=== PATIENT | male | born 1945 | race Hispanic/Latino ===

== ENCOUNTER 2017-10-18 11:43 | Inpatient (IN) | payer MEDICARE ==
[2017-10-18] MEDS ORDERED: HYDROmorphone 1 mg/ml ISec IVP STA (11:59)
[2017-10-18] MEDS ORDERED: DiphenhydrAMINE 50 mg/ml Inj IVP STA (11:59)
--- NOTE | 2017-10-18 12:00 | ED PDOC ---
Arrival/HPI - General Chief Complaint: Back Pain Time Seen by Provider: 10/18/17 11:45 Historian: Patient - History of Present Illness Narrative History of Present Illness (Text): 10/18/17 11:55 72 year old male, whose PMH includes diabetes and hypertension, who presents to the emergency department complaining of left sided flank and back pain since 3 days ago. Patient reports eating well on Thursday, but has also developed food intolerance and vomiting. Patient notes pain is worse when laying down or on the left side. Patient denies chest pain, shortness of breath, fever, chills, diarrhea, or other complaints. Time/Duration: < week Symptom Onset: Sudden Symptom Course: Worsening Context: Home Past Medical History - Provider Review Nursing Documentation Reviewed: Yes - Cardiac Hx Hypertension: Yes Hx Pacemaker: No - Neurological Hx Paralysis: No - Renal Other/Comment: Prostate - Endocrine/Metabolic Hx Diabetes Mellitus Type 2: Yes - Hematological/Oncological Hx Blood Transfusions: No Hx Blood Transfusion Reaction: No - Musculoskeletal/Rheumatological Hx Musculoskeletal Disorders: Yes (SPINAL STENOSIS) - Psychiatric Hx Substance Use: No - Surgical History Other/Comment: Laminectomy. Spinal Sx. Right hip replacement - Anesthesia Hx Anesthesia Reactions: Yes Hx Malignant Hyperthermia: No Family/Social History - Physician Review Nursing Documentation Reviewed: Yes Family/Social History: Unknown Family HX Smoking Status: Never Smoked Hx Alcohol Use: Yes (ON OCCASION) Frequency of alcohol use: Socially Hx Substance Use: No Allergies/Home Meds Allergies/Adverse Reactions: Allergies No Known Allergies Allergy (Verified 10/18/17 11:54) Home Medications: Home Meds Medication Instructions Recorded Confirmed Aspirin [Ecotrin] 325 mg PO QAM 12/12/15 10/18/17 Diltiazem HCl [Tiazac] 240 mg PO QAM 12/12/15 10/18/17 Fish Oil/Dha/Epa [Fish Oil 1,200 1 each PO QAM 12/12/15 10/18/17 mg Fish Oil] Insulin Pump/Infus. Set/Meter 1 each MC CONT 12/12/15 10/18/17 [Accu-Chek Combo System] Pregabalin [Lyrica] 75 mg PO BID 12/12/15 10/18/17 RX: Fenofibrate Nanocrystallized 145 mg PO QAM 12/12/15 10/18/17 [Fenofibrate] RX: Metoprolol Tartrate [Lopressor] 50 mg PO BID 12/12/15 10/18/17 RX: Ramipril [Altace] 10 mg PO QAM 12/12/15 10/18/17 Simvastatin [Zocor] 80 mg PO HS 12/12/15 10/18/17 Tramadol HCl [Ultram] 50 mg PO Q12H 12/12/15 10/18/17 Review of Systems - Review of Systems Constitutional: absent: Fevers ENT: absent: Sore Throat Respiratory: absent: SOB Cardiovascular: absent: Chest Pain Gastrointestinal: Nausea, Vomiting, Food Intolerance. absent: Diarrhea Genitourinary Male: absent: Dysuria Musculoskeletal: Back Pain (left sided back and flank pain ) Skin: absent: Rash Neurological: absent: Headache Endocrine: absent: Diaphoresis Physical Exam Vital Signs Reviewed: Yes Vital Signs Temp Pulse Resp BP Pulse Ox 10/18/17 16:31 62 18 129/76 98 10/18/17 11:50 98.2 F 96 H 18 126/83 99 Temperature: Afebrile Blood Pressure: Normal Pulse: Tachycardic Respiratory Rate: Normal Appearance: Positive for: Well-Appearing, Non-Toxic, Comfortable Pain Distress: None Mental Status: Positive for: Alert and Oriented X 3 - Systems Exam Head: Present: Atraumatic, Normocephalic Pupils: Present: PERRL Extroacular Muscles: Present: EOMI Conjunctiva: Present: Normal Mouth: Present: Moist Mucous Membranes Respiratory/Chest: Present: Clear to Auscultation, Good Air Exchange. No: Respiratory Distress, Accessory Muscle Use, Wheezes, Decreased Breath Sounds, Rales, Rhonchi Cardiovascular: Present: Regular Rate and Rhythm, Normal S1, S2. No: Murmurs Abdomen: Present: Distention, Normal Bowel Sounds. No: Tenderness, Peritoneal Signs, Rebound, Guarding Neurological: Present: GCS=15, CN II-XII Intact, Speech Normal Skin: Present: Warm, Dry, Normal Color. No: Rashes Psychiatric: Present: Alert, Oriented x 3, Normal Insight, Normal Concentration Medical Decision Making ED Course and Treatment: 10/18/17 Impression: 72 year old male with distended abdomen complaining of left sided flank and back pain associated with food intolerance. Plan: -- CT abdomen -- Labs -- Urinalysis -- Zofran, Reglan, Benadryl, Dialudid, Toradol, and Sodium Chloride -- Reassess and disposition Progress Notes: 10/18/17 13:18 CODE SEPSIS was called. 10/18/17 17:25 CT abdomen and pelvis: Creator : Ajay Gallego MD FINDINGS: LOWER THORAX: Heart is enlarged. Trace pericardial effusion.Small hiatal hernia. LIVER: Liver is enlarged measuring nearly sleep 20 cm in CC dimension. No obvious hepatic mass collection or calcification. GALLBLADDER AND BILE DUCTS: Cholelithiasis PANCREAS: Pancreas is slightly atrophic and fatty replaced. SPLEEN: Unremarkable. No splenomegaly. ADRENALS: No adrenal lesions KIDNEYS AND URETERS: There is an approximately 4.2 mm calculus left UVJ with mild left-sided hydronephrosis. Mild infiltration changes and fluid seen in the left perinephric fat. Punctate nonobstructing calcifications upper lower poles left kidney. There is a small cysts upper and lower pole right kidney. BLADDER: Urinary bladder is partially obscured by streak and beam hardening artifact arising from right total hip replacement. Urinary bladder incompletely distended which in part accounts for thick-walled appearance. Muscular hypertrophy may contribute. Other intrinsic/invasive wall lesion not excluded. REPRODUCTIVE: Prostate gland appears mildly enlarged measuring 5.1 cm. Note that the prostate gland is poorly seen due to streak and beam hardening artifact arising from the aforementioned right total hip replacement. APPENDIX: Normal appendix BOWEL: Evaluation of the bowel is limited due to incomplete opacification. Stomach is collapsed. Visualized loops of small bowel exhibit normal contour and caliber. No evidence of acute mechanical small bowel obstruction. Scattered colonic diverticula seen along the distal descending and sigmoid colon. No definitive radiographic evidence of acute diverticulitis. PERITONEUM: Unremarkable. No fluid collection. No free air. Small fat containing umbilical hernia. LYMPH NODES: Unremarkable. No enlarged lymph nodes. Small to medium sized fat containing umbilical hernia. Small bilateral fat containing inguinal hernias VASCULATURE: Unremarkable. No aortic aneurysm. BONES:Discectomy and bilateral laminectomy changes at the L4-L5 level with in situ disc prosthesis and short-segment bilateral Villalobos rods attached to the right and left pedicles of the L4 and L5 segments.Multilevel degenerative spondylosis of the lower thoracic and lumbar spine. OTHER FINDINGS: None. IMPRESSION: There is a small approximately 4.2 mm calculus left UVJ with mild left-sided hydronephrosis. Small cysts right kidney. Two punctate nonobstructing calcifications upper lower pole left kidney. Urinary bladder wall is thickened likely due to incomplete distention and muscular hypertrophy however other intrinsic/invasive wall lesion not excluded. Hepatomegaly. Cholelithiasis. Diverticulosis. No diverticulitis. Postoperative changes L4-L5 disc space level. 10/18/17 18:30 Patient has agreed to stay and request for Dr. Devon Rubin, his PMD, to take care of him. Case has been discussed with Dr. Thompson, medicine recreational aide, who agree to take case and is aware of patient's treatment. 10/18/17 19:36 Dr. Rubin was unable to call back at first, but ended up calling and became aware of the patients HPI and treatment. Dr. Rubin agreed to take patient under service. - Lab Interpretations Lab Results: 10/18/17 12:35 10/18/17 12:35 Lab Results 10/18/17 16:20: pO2 37, VBG pH 7.33, VBG pCO2 52.0, VBG HCO3 27.4, VBG Total CO2 29.0 H, VBG O2 Sat (Calc) 72.0 H, VBG Base Excess 0.6, VBG Potassium 4.8, Sodium 137.0, Chloride 104.0, Glucose 249 H, Lactate 2.0, FiO2 21.0, Venous Blood Potassium 4.8 10/18/17 12:35: Sodium 140, Chloride 101, Potassium 5.0, Carbon Dioxide 24, Anion Gap 21 H, BUN 31 H, Creatinine 2.9 H, Est GFR ( Amer) 26, Est GFR ( Non-Af Amer) 21, Random Glucose 322 H*, Calcium 9.9, Total Bilirubin 1.1, AST 46 , ALT 35, Alkaline Phosphatase 67, Total Protein 8.3, Albumin 4.6, Globulin 3.7 , Albumin/Globulin Ratio 1.3, Lipase 41 10/18/17 12:35: pO2 28 L, VBG pH 7.41, VBG pCO2 40.0, VBG HCO3 25.4, VBG Total CO2 26.6, VBG O2 Sat (Calc) 62.0, VBG Base Excess 0.7, VBG Potassium 5.0, Sodium 136.0, Chloride 102.0, Glucose 350 H, Lactate 2.5 H, FiO2 21.0, Venous Blood Potassium 5.0 10/18/17 12:35: Urine Color Yellow, Urine Appearance Clear, Urine pH 6.0, Ur Specific [place] 1.020, Urine Protein >=300 H, Urine Glucose (UA) >=1000, Urine Ketones Negative, Urine Blood Large H, Urine Nitrate Negative, Urine Bilirubin Negative, Urine Urobilinogen 0.2, Ur Leukocyte Esterase Negative, Urine RBC 25 - 30, Urine WBC 5 - 10, Ur Epithelial Cells 0 - 2, Urine Bacteria Mod 10/18/17 12:35: PT 12.2, INR 1.06 10/18/17 12:35: WBC 10.4, RBC 4.44, Hgb 13.8 L, Hct 39.4 L, MCV 88.7, MCH 31.1, MCHC 35.0, RDW 14.3, Plt Count 191, MPV 11.0, Gran % 80.1 H, Lymph % (Auto) 12.0 L, [place] % (Auto) 7.7 H, Eos % (Auto) 0.1 L, Baso % (Auto) 0.1, Gran # 8.31 H, Lymph # (Auto) 1.3, [place] # (Auto) 0.8 H, Eos # (Auto) 0.0, Baso # (Auto) 0.01 I have reviewed the lab results: Yes - RAD Interpretation Radiology Orders: 10/18/17 15:15 ABD & PELVIS PO CONTRAST ONLY [CT] Stat Activities Counselor: Radiologist - Medication Orders Current Medication Orders: Discontinued Medications Diphenhydramine HCl (Benadryl) 25 mg IVP STAT STA Stop: 10/18/17 12:00 Last Admin: 10/18/17 12:33 Dose: 25 mg IVP Administration Document 10/18/17 12:33 EQ (Rec: 10/18/17 12:33 EQ [id number]) Charges for Administration # of IVP Administrations 1 Hydromorphone HCl (Dilaudid) 1 mg IVP STAT STA Stop: 10/18/17 12:00 Hydromorphone HCl (Dilaudid) 1 mg IVP STAT STA Stop: 10/18/17 12:12 Last Admin: 10/18/17 12:32 Dose: 1 mg MAR Pain Assessment Document 10/18/17 12:32 EQ (Rec: 10/18/17 12:32 EQ [id number]) Pain Reassessment Is this a pain reassessment? No Sleep Is patient sleeping during reassessment? No Presence of Pain Presence of Pain Yes IVP Administration Document 10/18/17 12:32 EQ (Rec: 10/18/17 12:32 EQ [id number]) Charges for Administration # of IVP Administrations 1 Piperacillin Sod/Tazobactam Sod (Zosyn 3.375 In Ns 100ml) 100 mls @ 200 mls/hr IVPB STAT STA PRN Reason: Protocol Stop: 10/18/17 13:59 Last Admin: 10/18/17 14:28 Dose: 200 mls/hr eMAR Start Stop Document 10/18/17 14:28 EQ (Rec: 10/18/17 14:28 EQ [id number]) Intravenous Solution Start Date 10/18/17 Start Time 14:28 Metronidazole (Flagyl) 500 mg in 100 mls @ 100 mls/hr IVPB STAT STA PRN Reason: Protocol Stop: 10/18/17 14:29 Last Admin: 10/18/17 16:10 Dose: 100 mls/hr eMAR Start Stop Document 10/18/17 16:10 EQ (Rec: 10/18/17 16:10 EQ [id number]) Intravenous Solution Start Date 10/18/17 Start Time 16:10 Sodium Chloride (Sodium Chloride 0.9%) 1,000 mls @ 999 mls/hr IV .Q1H1M STA Stop: 10/18/17 15:05 Last Admin: 10/18/17 14:27 Dose: 999 mls/hr eMAR Start Stop Document 10/18/17 14:27 EQ (Rec: 10/18/17 14:28 EQ [id number]) Intravenous Solution Start Date 10/18/17 Start Time 14:27 Sodium Chloride (Sodium Chloride 0.9%) 1,000 mls @ 999 mls/hr IV .Q1H1M STA Stop: 10/18/17 18:21 Last Admin: 10/18/17 17:57 Dose: 999 mls/hr eMAR Start Stop Document 10/18/17 17:57 EQ (Rec: 10/18/17 17:57 EQ [id number]) Intravenous Solution Start Date 10/18/17 Start Time 17:57 Ketorolac Tromethamine (Toradol) 30 mg IVP STAT STA Stop: 10/18/17 12:00 Last Admin: 10/18/17 12:34 Dose: 30 mg MAR Pain Assessment Document 10/18/17 12:34 EQ (Rec: 10/18/17 12:34 EQ [id number]) Pain Reassessment Is this a pain reassessment? No Sleep Is patient sleeping during reassessment? No Presence of Pain Presence of Pain Yes IVP Administration Document 10/18/17 12:34 EQ (Rec: 10/18/17 12:34 EQ [id number]) Charges for Administration # of IVP Administrations 1 Metoclopramide HCl (Reglan) 10 mg IVP STAT STA Stop: 10/18/17 12:00 Last Admin: 10/18/17 12:33 Dose: 10 mg IVP Administration Document 10/18/17 12:33 EQ (Rec: 10/18/17 12:33 EQ [id number]) Charges for Administration # of IVP Administrations 1 Ondansetron HCl (Zofran Inj) 4 mg IVP STAT STA Stop: 10/18/17 12:00 Last Admin: 10/18/17 12:33 Dose: 4 mg IVP Administration Document 10/18/17 12:33 EQ (Rec: 10/18/17 12:33 EQ [id number]) Charges for Administration # of IVP Administrations 1 - Scribe Statement The provider has reviewed the documentation as recorded by the Sree Lopez Provider Scribe Attestation: All medical record entries made by the Scribe were at my direction and personally dictated by me. I have reviewed the chart and agree that the record accurately reflects my personal performance of the history, physical exam, medical decision making, and the department course for this patient. I have also personally directed, reviewed, and agree with the discharge instructions and disposition. Disposition/Present on Arrival - Present on Arrival Any Indicators Present on Arrival: No History of DVT/PE: No History of Uncontrolled Diabetes: No Urinary Catheter: No History of Decub. Ulcer: No History Surgical Site Infection Following: None - Disposition Have Diagnosis and Disposition been Completed?: Yes Diagnosis: Kidney stone on left side, Hydronephrosis, Acute kidney injury, Dehydration, Lactic acidosis Disposition: HOSPITALIZED Disposition Time: 19:33 Patient Plan: Admission Patient Problems: Current Active Problems Problem Status Onset Kidney stone on left side Acute Hydronephrosis Acute Acute kidney injury Acute Dehydration Acute Lactic acidosis Acute Condition: GOOD Forms: [facility] ([place])
[2017-10-18] MEDS ORDERED: HYDROmorphone 0.5 mg/0.5 ml ISec IVP STA (12:11)
[2017-10-18] MEDS ORDERED: Iohexol 350 MG/100 ML VIAL ONE (12:46)
[2017-10-18] MEDS ORDERED: Iohexol 240 (50 ml) ONE (12:46)
[2017-10-18 13:11] LABS: VENOUS BLOOD GAS BASE EXCESS 0.7 mmol/L (0.0-2.0); VENOUS BLOOD GAS PO2 28 mm/Hg (30-55); VENOUS BLOOD PH 7.41 (7.32-7.43)
[2017-10-18 13:19] LABS: BASO # 0.01 K/mm3 (0.0-2.0); BASO % 0.1 % (0.0-3.0); EOS % 0.1 % (1.5-5.0); GRAN # 8.31 (1.4-6.5); GRAN % 80.1 % (50.0-68.0); HEMOGLOBIN 13.8 g/dL (14.0-18.0); LYMPH # 1.3 (1.2-3.4); MEAN CELL VOLUME 88.7 fl (80.0-105.0); MEAN CORPUSCULAR HEMOGLOBIN 31.1 pg (25.0-35.0); MONO # 0.8 (0.1-0.6); MONO % 7.7 % (1.0-6.0); RBC 4.44 10^6/uL (3.5-6.1); RED CELL DISTRIBUTION WIDTH 14.3 % (11.5-14.5); WHITE BLOOD COUNT 10.4 10^3/ul (4.5-11.0)
[2017-10-18 13:24] LABS: URINE BILIRUBIN NEGATIVE (NEGATIVE); URINE BLOOD LARGE (NEGATIVE); URINE GLUCOSE (UA) >=1000 mg/dL (NEGATIVE); URINE LEUKOCYTE ESTERASE NEGATIVE Leu/uL (NEGATIVE); URINE PROTEIN >=300 mg/dL (<30 mg/dL); URINE UROBILINOGEN 0.2 E.U./dL (<1 E.U./dL)
[2017-10-18 13:25] LABS: ALB/GLOB RATIO 1.3 (1.1-1.8); ALBUMIN 4.6 g/dL (3.0-4.8); CALCIUM 9.9 mg/dL (8.4-10.5)
[2017-10-18 13:29] LABS: URINE COLOR YELLOW (YELLOW)
[2017-10-18 13:30] LABS: INR 1.06 (0.93-1.08); PROTHROMBIN TIME 12.2 SECONDS (9.4-12.5); URINE APPEARANCE CLEAR (CLEAR)
[2017-10-18] MEDS ORDERED: metroNIDAZOLE IV 500 mg/100 ml 500 MG/100 ML BAG IVPB STA (13:30)
[2017-10-18] MEDS ORDERED: Piperacillin/Tazobact 3.375 gm 100 ML IVPB STA (13:30)
[2017-10-18 14:05] LABS: URINE BACTERIA MOD (NEG); URINE EPITHELIAL CELLS 0 - 2 /hpf (0-5); URINE RBC 25 - 30 /hpf (0-2)
[2017-10-18] MEDS ORDERED: Sodium Chloride 0.9% 1,000 ML IV STA ×2 (14:05→17:21)
[2017-10-18 16:30] LABS: VENOUS BLOOD GAS BASE EXCESS 0.6 mmol/L (0.0-2.0); VENOUS BLOOD GAS PO2 37 mm/Hg (30-55); VENOUS BLOOD PH 7.33 (7.32-7.43)
--- NOTE | 2017-10-18 17:22 | CT ---
PROCEDURE: CT Abdomen and Pelvis with Oral contrast. HISTORY: Left-sided flank abdominal pain with constipation COMPARISON: None. TECHNIQUE: Contiguous axial images of the abdomen and pelvis with oral contrast. Coronal and Sagittal reformats generated. Radiation dose: Total exam DLP = 1099.52 mGy-cm. This CT exam was performed using one or more of the following dose reduction techniques: Automated exposure control, adjustment of the mA and/or kV according to patient size, and/or use of iterative reconstruction technique. Total exam DLP = 1099.52 mGy-cm. FINDINGS: LOWER THORAX: Heart is enlarged. Trace pericardial effusion. Small hiatal hernia. LIVER: Liver is enlarged measuring nearly sleep 20 cm in CC dimension. No obvious hepatic mass collection or calcification. GALLBLADDER AND BILE DUCTS: Cholelithiasis PANCREAS: Pancreas is slightly atrophic and fatty replaced. SPLEEN: Unremarkable. No splenomegaly. ADRENALS: No adrenal lesions KIDNEYS AND URETERS: There is an approximately 4.2 mm calculus left UVJ with mild left-sided hydronephrosis. Mild infiltration changes and fluid seen in the left perinephric fat. Punctate nonobstructing calcifications upper lower poles left kidney. There is a small cysts upper and lower pole right kidney. BLADDER: Urinary bladder is partially obscured by streak and beam hardening artifact arising from right total hip replacement. Urinary bladder incompletely distended which in part accounts for thick-walled appearance. Muscular hypertrophy may contribute. Other intrinsic/invasive wall lesion not excluded. REPRODUCTIVE: Prostate gland appears mildly enlarged measuring 5.1 cm. Note that the prostate gland is poorly seen due to streak and beam hardening artifact arising from the aforementioned right total hip replacement. APPENDIX: Normal appendix BOWEL: Evaluation of the bowel is limited due to incomplete opacification. Stomach is collapsed Visualized loops of small bowel exhibit normal contour and caliber. No evidence of acute mechanical small bowel obstruction. Scattered colonic diverticula seen along the distal descending and sigmoid colon. No definitive radiographic evidence of acute diverticulitis. PERITONEUM: Unremarkable. No fluid collection. No free air. Small fat containing umbilical hernia. LYMPH NODES: Unremarkable. No enlarged lymph nodes. Small to medium sized fat containing umbilical hernia. Small bilateral fat containing inguinal hernias VASCULATURE: Unremarkable. No aortic aneurysm. BONES: Discectomy and bilateral laminectomy changes at the L4-L5 level with in situ disc prosthesis and short-segment bilateral Villalobos rods attached to the right and left pedicles of the L4 and L5 segments. Multilevel degenerative spondylosis of the lower thoracic and lumbar spine. OTHER FINDINGS: None. IMPRESSION: There is a small approximately 4.2 mm calculus left UVJ with mild left-sided hydronephrosis. Small cysts right kidney. Two punctate nonobstructing calcifications upper lower pole left kidney. Urinary bladder wall is thickened likely due to incomplete distention and muscular hypertrophy however other intrinsic/invasive wall lesion not excluded. Hepatomegaly. Cholelithiasis. Diverticulosis. No diverticulitis. Postoperative changes L4-L5 disc space level.
--- NOTE | 2017-10-18 20:18 | PCM.SEPTIC ---
<RobertAlexsyd - Last Filed: 10/18/17 20:15> Sepsis Progress Note - Reassessment Type Date of Evaluation: 10/18/17 Time of Evaluation: 07:20 Reassessment Type: Non-invasive reassessment - Non Invasive Reassessment Were the most recent vital sign reviewed: Yes Vital Sign (Latest): Temp Pulse Resp BP Pulse Ox 98.2 F 62 18 129/76 98 10/18/17 11:50 10/18/17 16:31 10/18/17 16:31 10/18/17 16:31 10/18/17 16:31 Cardiovascular: Yes: Regular Rate, Rhythm Respiratory: Yes: Normal Breath Sounds Capillary Refill: Normal (Less than 2 sec) Pulses: Normal Radial, Normal Dorsalis Pedis, Normal Posterior Tibialis Skin: Normal Color, Warm Fluid Challenge performed: No <Taran Rachel - Last Filed: 10/18/17 21:37> Sepsis Progress Note - Non Invasive Reassessment Vital Sign (Latest): Temp Pulse Resp BP Pulse Ox 98.2 F 65 18 117/58 L 96 10/18/17 11:50 10/18/17 21:01 10/18/17 21:01 10/18/17 21:01 10/18/17 21:01 Attending/Attestation - Attestation I have personally seen and examined this patient.: No I have fully participated in the care of the patient.: Yes I have reviewed all pertinent clinical information, including history, physical exam and plan: Yes
[2017-10-18] MEDS: Sodium Chloride 0.9% 1,000 ML IV SCH (23:00)
[2017-10-18 23:45] VITALS: RESP 20; BMI 37.5
[2017-10-19] MEDS: Morphine 4 mg/ml ISec IVP PRN ×2 (02:52→08:00)
[2017-10-19] MEDS ORDERED: Morphine 2 mg/ml ISec IVP ONE (05:07)
[2017-10-19 08:21] VITALS: BP 153/74; PULSE 81; TEMP 98.2; O2SAT 96
[2017-10-19] MEDS: Sodium Chloride 0.9% 1,000 ML IV SCH (09:23)
[2017-10-19] MEDS ORDERED: diltiaZEM 180 mg/24 Hours CD Cap PO SCH (10:00)
[2017-10-19] MEDS ORDERED: Sodium Chloride 0.9% 1,000 ML IV SCH (11:35)
[2017-10-19] MEDS ORDERED: Morphine 2 mg/ml ISec IVP PRN (12:52)
--- NOTE | 2017-10-19 14:16 | CP.PCM.PCO ---
Physician Communication Note - Physician Communication Note Physician Communication Note: $mm renal stone/AM Stent ?/FS Glucose QID
--- NOTE | 2017-10-19 19:23 | CON ---
DATE: 10/19/2017 GENITOURINARY CONSULTATION CHIEF COMPLAINT: Left flank pain. HISTORY OF PRESENT ILLNESS: This is a 72-year-old male who is seen in [facility]. The patient has a history of chronic back pain, has had multiple surgeries including a recent laminectomy. He was complaining of a few days of left-sided flank pain. He denies any fever or chills. He did have some nausea and vomiting. The pain was continuing and worsening, and patient presented to the Emergency Room. In the Emergency Room, the patient had a CT scan done which showed a small ureteral calculus. He was then admitted and a consultation was requested. The patient reports he is voiding well. He denies any dysuria, urinary frequency, urgency or gross hematuria. He reports he is very hungry at this point and would like to eat something. He reports the pain has improved. consultation was requested regarding the above. PAST MEDICAL HISTORY: Significant for laminectomy and diskectomy, right hip replacement, diabetes, hypertension, hyperlipidemia. MEDICATIONS: Include insulin pump, Cardizem, morphine, Toradol, Zofran. ALLERGIES: NO KNOWN DRUG ALLERGIES. FAMILY HISTORY: Noncontributory. SOCIAL HISTORY: Denies current smoking or EtOH use. REVIEW OF SYSTEMS: A 12-point review of systems was obtained. Positive now for back pain; flank pain has resolved. Positive for feeling hungry. Denies fever or chills. Other systems are negative. PHYSICAL EXAMINATION: GENERAL: The patient is awake and alert. He is answering questions. VITAL SIGNS: He is afebrile, temp of 98.2, pulse of 81, BP 153/74, respirations 20. NECK: Supple. There is no adenopathy. CHEST: Reveals a normal inspiratory effort. CARDIAC: Positive S1 and S2. There is no peripheral edema. ABDOMEN: Obese, soft, nontender, nondistended. There is no rebound or guarding. There is no CVA tenderness. There is no hepatosplenomegaly noted. GENITOURINARY: The phallus is normal. Scrotum is normal. Testes bilaterally descended, nontender, no masses. Epididymis are normal. LABORATORY DATA: WBC count yesterday 10.4, creatinine 2.9, unclear whether this is his baseline or something new; there are no prior levels noted. Microbiology, blood cultures were no growth after 24 hours. On radiologic exam, the patient had a CT scan of the abdomen and pelvis done which showed a 4 mm calculus at the left UV junction with mild hydronephrosis. There are punctate non-obstructing calcifications in the upper pole of the left kidney. There was diverticulosis with no diverticulitis. Postoperative changes at the L4-L5 disk space level. IMPRESSION AND PLAN: This is a 72-year-old male with renal colic. Currently the patient is feeling well and pain has subsided. The patient does have diabetes and does have a at least partially obstructing stone. The stone is at the UV junction currently. I discussed with the patient that he should have a stent placed or a procedure to remove the stone. The patient wants to try and pass the stone spontaneously. He has no signs of infection or sepsis at this time. The patient reports feeling hungry and wants to try medical expulsive therapy. We will start him on Flomax 0.4 mg for now, I would observe the patient overnight and strain his urine. Repeat WBC count tomorrow morning, and observe patient closely. If there are any signs of infection or if the stone does not pass, I would recommend stent placement. The other issue is the patient's renal function. I discussed with Dr. Rubin and it does appear that the patient has a history of chronic renal insufficiency. However, it is unclear what his baseline creatinine is. We will repeat his blood work in the morning. Continue hydration and observation. Phi Santos MD
--- NOTE | 2017-10-19 23:15 | HP ---
CHIEF COMPLAINT: Left renal colic - nephrolithiasis - hydronephrosis. PRESENT ILLNESS: The patient is a 72-year-old male with sudden onset of left flank pain radiating across his abdomen down towards the pubis. This is the first symptom for this individual and he notes that the pain is getting worse by lying down. He denies chest pain, shortness of breath, or any other GI complaints. REVIEW OF SYSTEMS: 1. Hypertensive coronary artery disease. 2. Insulin-dependent diabetes mellitus. 3. Severe degenerative joint disease. 4. Severe lower back sciatica. MEDICATIONS: Aspirin 325, diltiazem 240, fish oil discontinued recently, insulin pump with Humalog, Lyrica 75 b.i.d., fenofibrate 145 mg daily, Toprol 50 b.i.d., ramipril , Zocor - Lipitor, and supposedly tramadol which the patient does not know about and does not have. SOCIAL HISTORY: He quit smoking in 1979. Alcohol and drugs, noncontributory. PHYSICAL EXAMINATION: VITAL SIGNS: Blood pressure 130/76, dropping to 110/80; pulse is 56, rising to 80 with discontinuing the oral medication. HEAD, EYES, EARS, NOSE, AND THROAT: Right conjunctiva, no icterus. Normal hearing and vision. LUNGS: Clear. HEART: There is no S3. ABDOMEN: Soft. There is no tenderness or guarding. There is left CVA tenderness. There are no hernias. The abdomen is markedly distended. There is a palpable insulin pump on the right side of the abdomen at the level of the umbilicus. RECTAL AND GENITALIA: Normal. EXTREMITIES: Without cyanosis, clubbing, or edema. IMPRESSION UPON ADMISSION: 1. Left nephrolithiasis with hydronephrosis. 2. Insulin-dependent diabetes mellitus. 3. Hypertensive coronary artery disease. RECOMMENDATIONS UPON ADMISSION: Increase hydration, strain urine, urologic consults for possible retrograde catheterization. Parrish Rubin MD
== END 2017-10-19 18:39 | disposition left against medical advice (07) | DRG 694 ==
LOC: ED 11:43 → ERH 19:26 → 5RNO 22:21
PROVIDERS: ADMIT Surgery; ATTEND Surgery
DX: N13.2 Hydronephrosis with renal and ureteral calculous obstruction (principal); E87.2 Acidosis; E86.0 Dehydration; N17.9 Acute kidney failure, unspecified; I25.10 Atherosclerotic heart disease of native coronary artery without angina pectoris; E11.22 Type 2 diabetes mellitus with diabetic chronic kidney disease; I12.9 Hypertensive chronic kidney disease with stage 1 through stage 4 chronic kidney disease, or unspecified chronic kidney disease; N18.9 Chronic kidney disease, unspecified; M19.90 Unspecified osteoarthritis, unspecified site; M54.30 Sciatica, unspecified side; K57.90 Diverticulosis of intestine, part unspecified, without perforation or abscess without bleeding; K80.20 Calculus of gallbladder without cholecystitis without obstruction; E78.5 Hyperlipidemia, unspecified; Z96.641 Presence of right artificial hip joint; Z79.4 Long term (current) use of insulin; Z79.82 Long term (current) use of aspirin; Z87.891 Personal history of nicotine dependence